=== PATIENT | female | born 1990 | race African-American/Black ===

== ENCOUNTER → 2021-01-27 | Outpatient (CLI) | payer MEDICARE, MEDICAID ==
--- NOTE | 2021-01-29 12:03 | SLEEP ---
DATE OF STUDY: 01/28/2021 HOME SLEEP STUDY ATTENDING PHYSICIAN: Blanche Rojo MD The patient is a 30-year-old who weighs 523 pounds with a BMI of 80. The patient underwent home sleep study performed at [facility]. Total recording time was 430 minutes. During the night study, the patient had 20 obstructive apneas, no central apneas. The patient is 68 mixed apneas and one hypopnea. The patient's AHI was 17.8 per hour. Nocturnal oximetry data was not available as the patient did not wear the saturation probe. The respiratory events were scored based on the flow signal. IMPRESSION: Moderate obstructive sleep apnea at an AHI of 17.8 per hour based on flow signal only. Oximetry data was not available. RECOMMENDATIONS: 1. The patient will benefit from treatment of sleep apnea with CPAP. 2. Once the patient is optimally treated with CPAP, then follow up in 4-6 weeks to assess compliance and to document clinical improvement. 3. Weight loss is strongly advised. The patient's BMI is 80. 4. Avoid [employer]END[employer] depressants. 5. Cautioned regarding driving until symptoms of sleep apnea resolve with above recommendations. LEE DR: Miguel TID: [id number]
== END ==
LOC: RT 08:36
DX: G47.33 Obstructive sleep apnea (adult) (pediatric) (principal)
CPT/HCPCS: G0399

== ENCOUNTER → 2021-03-31 | Outpatient (CLI) | payer MEDICARE, MEDICAID ==
--- NOTE | 2021-04-01 09:51 | SLEEP ---
DATE OF STUDY: 03/31/2021 SLEEP STUDY ATTENDING PHYSICIAN: Jonny Peace MD The patient is a 30-year-old who weighs 513 pounds with a BMI of 78. The patient had previous home sleep study and was found to have moderate BROCK at an AHI of 17.8 per hour. The patient returned for CPAP titration study. The patient's [place] score was 19. During the night study, the patient spent 487 minutes in bed and slept for 463 minutes with a sleep efficiency of 95%. Sleep latency was 3 minutes with REM latency of 67 minutes. Sleep architecture showed normal stage 1 and stage 2 sleep, increased REM sleep and normal slow-wave sleep. EKG monitoring revealed average heart rate of 88 beats per minute. No arrhythmias observed. No PLMs were observed. The patient was started on CPAP at 7 cm water and titrated up to 17 cm water. At the final pressure, the patient slept for 266 minutes. The patient had lateral REM sleep. There was some supine REM sleep as well. The patient's AHI was reduced to 0 per hour and oxygen saturation remained above 93%. The patient used full face mask. IMPRESSION: 1. Sleep apnea diagnosed by previous home sleep study. 2. No evidence of periodic limb movements. RECOMMENDATIONS: 1. CPAP at 17 cm water completely eliminated the patient's sleep apnea and should be used on a nightly basis. 2. Follow up in 4-6 weeks to assess compliance with CPAP and to document clinical improvement. 3. Weight loss is strongly advised. 4. Avoid [employer] depressants. 5. Cautioned regarding driving until symptoms of sleep apnea resolve with the use of CPAP. CLAUDY DR: Migeul TID: [id number] CC: JONNY PEACE MD
== END ==
LOC: RT 19:33
DX: G47.33 Obstructive sleep apnea (adult) (pediatric) (principal)
CPT/HCPCS: 95811

== ENCOUNTER 2021-11-07 12:21 | Emergency (ER) | payer MEDICAID, MEDICARE ==
[~2021-11-07] VITALS: Ht 172.7 cm; Wt 182.7 kg
[2021-11-07 13:23] LABS: BASO # 0.1 x10^3/uL (0.0-0.2); BASO % 1 % (0-3); EOS # 0.2 x10^3/uL (0.0-0.7); EOS % 3 % (0-3); HEMATOCRIT 40.3 % (36.0-47.0); HEMOGLOBIN 13.1 g/dL (12.0-15.5); LYMPH # 2.5 x10^3/uL (1.0-4.8); LYMPH % 30 % (24-48); MEAN CORPUSCULAR HEMOGLOBIN 25 pg (25-35); MEAN CORPUSCULAR HGB CONC 33 g/dL (31-37); MEAN CORPUSCULAR VOLUME 77 fL (79-100); MONO # 0.6 x10^3/uL (0.0-1.1); MONO % 7 % (0-9); NEUT # 5.1 x10^3/uL (1.8-7.7); NEUT % 59 % (31-73); PLATELET COUNT 306 x10^3/uL (140-400); RED BLOOD COUNT 5.27 x10^6/uL (3.50-5.40); RED CELL DISTRIBUTION WIDTH 16.5 % (11.5-14.5); WHITE BLOOD COUNT 8.5 x10^3/uL (4.0-11.0)
[2021-11-07] MEDS ORDERED: PANTOPRAZOLE IV PUSH 40 MG VIAL. IVP ONE (13:30)
[2021-11-07] MEDS ORDERED: LIDO:MAALOX 1:1 20 ML SINGLE DOSE. SWSW ONE (13:30)
[2021-11-07 13:40] LABS: CALCIUM 8.6 mg/dL (8.5-10.1); CREATININE 0.7 mg/dL (0.6-1.0); POTASSIUM 3.7 mmol/L (3.5-5.1)
[2021-11-07 13:45] LABS: ALBUMIN/GLOBULIN RATIO 0.6 (1.0-1.7); TOTAL BILIRUBIN 0.3 mg/dL (0.2-1.0); TOTAL PROTEIN 7.9 g/dL (6.4-8.2)
[2021-11-07 13:50] LABS: BACTERIA,URINE FEW /HPF (0-FEW); RBC,URINE 0 /HPF (0-2); WBC,URINE OCC /HPF (0-4)
--- NOTE | 2021-11-07 14:02 | RAD ---
EXAM: XR ABDOMEN 1V 11/07/2021 1:08 PM CLINICAL INDICATION: Abdominal pain COMPARISON: None TECHNIQUE: AP supine view the abdomen FINDINGS: Bowel gas pattern is nonspecific and nonobstructive. There is stool in the right hemicolon . No abnormal calcifications. No acute osseous abnormality. IMPRESSION: No acute abnormality in the abdomen. Electronically signed by: Audra Mason MD (11/07/2021 2:00 PM) [id number]
--- NOTE | 2021-11-07 14:38 | RAD ---
Ultrasound of the right upper quadrant of the abdomen 11/07/2021 CLINICAL HISTORY: Right upper quadrant abdominal pain. TECHNIQUE: A real-time ultrasound examination of the right upper quadrant of the abdomen was serafine d. Multiple images were obtained. FINDINGS: The study is limited to some degree due to the patient's large body habitus. The gallbladde r is well-distended. A 2.8 cm gallstone is seen within the gallbladder. The gallbladder wall thicknes s is within normal limits. No pericholecystic fluid is seen. The common bile duct is not definitely v isualized. No obvious intrahepatic biliary ductal dilatation is seen. Increased echogenicity of the l iver parenchyma is seen consistent with fatty infiltration. The liver is mildly enlarged measuring 20 cm in length. The pancreas is not well-visualized due to the patient's body habitus and overlying juliana wel gas. The right kidney is within normal limits. No free fluid is seen. IMPRESSION: 1. Cholelithiasis. 2. Mild hepatomegaly. Fatty infiltration of the liver. Electronically signed by: Rebel Patel MD (11/07/2021 2:35 PM) [id number]
[2021-11-07] MEDS ORDERED: PANT40TA77 PO (14:48)
[2021-11-07 14:50] VITALS: BP 151/91
--- NOTE | 2021-11-07 14:57 | PHYS DOC ---
Past Medical History Past Surgical History: No Surgical History Smoking Status: Never Smoker Alcohol Use: None General Adult EDM: Chief Complaint: ABDOMINAL PAIN HPI: HPI: Patient is a 30 year old F with PMH of postpartumx3, obesity who presents with epigastric and right upper quadrant pain for several years which has increased over the last couple of weeks. Patient states that she does not know what is going on. She states that it usually hurts more when she eats. She has not tried any medication. She has not visited her doctor to talk about this. Review of Systems: Review of Systems: Constitutional: Denies fever or chills. [] Eyes: Denies change in visual acuity. [] HENT: Denies nasal congestion or sore throat. [] Respiratory: Denies cough or shortness of breath. [] Cardiovascular: Denies chest pain or edema. [] GI: Positive abdominal pain, no nausea, vomiting, bloody stools or diarrhea. [] : Denies dysuria. [] Musculoskeletal: Denies back pain or joint pain. [] Integument: Denies rash. [] Neurologic: Denies headache, focal weakness or sensory changes. [] Endocrine: Denies polyuria or polydipsia. [] Lymphatic: Denies swollen glands. [] Psychiatric: Denies depression or anxiety. [] Heart Score: C/O Chest Pain: No Risk Factors: Risk Factors: DM, Current or recent (<one month) smoker, HTN, HLP, family history of CAD, obesity. Risk Scores: Score 0 - 3: 2.5% MACE over next 6 weeks - Discharge Home Score 4 - 6: 20.3% MACE over next 6 weeks - Admit for Clinical Observation Score 7 - 10: 72.7% MACE over next 6 weeks - Early Invasive Strategies Current Medications: Current Medications Medications (Trade) Dose Ordered Sig/Claudette Start Time Stop Time Status Last Admin Dose Admin Multi-Ingredient Mouthwash/Gargle (Gi Cocktail) 20 ml 1X ONCE 11/07/21 13:30 11/07/21 13:31 DC 11/07/21 13:38 20 ML Pantoprazole Sodium (PROTONIX VIAL for IV PUSH) 40 mg 1X ONCE 11/07/21 13:30 11/07/21 13:31 DC 11/07/21 13:39 40 MG Allergies: Allergies: Allergies Coded Allergies Type Severity Reaction Last Updated Verified No Known Drug Allergies 11/07/21 No Physical Exam: PE: Constitutional: Well developed, well nourished, no acute distress, non-toxic appearance. Morbidly obese [] HENT: Normocephalic, atraumatic, bilateral external ears normal, oropharynx moist, no oral exudates, nose normal. [] Eyes: PERRLA, EOMI, conjunctiva normal, no discharge. [] Neck: Normal range of motion, no tenderness, supple, no stridor. [] Cardiovascular:Heart rate regular rhythm, no murmur [] Lungs & Thorax: Bilateral breath sounds clear to auscultation [] Abdomen: Bowel sounds normal, soft, minimal positive tenderness in epigastric and right upper quadrant area, no masses, no pulsatile masses. [] Skin: Warm, dry, no erythema, no rash. [] Back: No tenderness, no CVA tenderness. [] Extremities: No tenderness, no cyanosis, no clubbing, ROM intact, no edema. [] Neurologic: Alert and oriented X 3, normal motor function, normal sensory function, no focal deficits noted. [] Psychologic: Affect normal, judgement normal, mood normal. [] Current Patient Data: Labs: Laboratory Tests Test 11/07/21 12:42 11/07/21 13:09 11/07/21 13:21 Urine Collection Type Unknown Urine Color (Auto) Yellow Urine Turbidity Clear Urine pH (Auto) 6.5 (<5.0-8.0) Urine Specific [place] 1.026 (1.000-1.030) Urine Protein (Auto) Negative mg/dL (Negative) Urine Glucose (Auto)(UA) Negative mg/dL (Negative) Urine Ketones (Auto) Negative mg/dL (Negative) Urine Blood (Auto) Negative (Negative) Urine Nitrite Negative (Negative) Urine Bilirubin (Auto) Negative (Negative) Urine Urobilinogen (Auto) Normal mg/dL (Normal) Urine Leukocyte Esterase (Auto) Negative (Negative) Urine RBC 0 /HPF (0-2) Urine WBC Occ /HPF (0-4) Urine Squamous Epithelial Cells Mod /LPF Urine Bacteria Few /HPF (0-FEW) Urine Mucus Mod /LPF White Blood Count 8.5 x10^3/uL (4.0-11.0) Red Blood Count 5.27 x10^6/uL (3.50-5.40) Hemoglobin 13.1 g/dL (12.0-15.5) Hematocrit 40.3 % (36.0-47.0) Mean Corpuscular Volume 77 fL (79-100) L Mean Corpuscular Hemoglobin 25 pg (25-35) Mean Corpuscular Hemoglobin Concent 33 g/dL (31-37) Red Cell Distribution Width 16.5 % (11.5-14.5) H Platelet Count 306 x10^3/uL (140-400) Neutrophils (%) (Auto) 59 % (31-73) Lymphocytes (%) (Auto) 30 % (24-48) Monocytes (%) (Auto) 7 % (0-9) Eosinophils (%) (Auto) 3 % (0-3) Basophils (%) (Auto) 1 % (0-3) Neutrophils # (Auto) 5.1 x10^3/uL (1.8-7.7) Lymphocytes # (Auto) 2.5 x10^3/uL (1.0-4.8) Monocytes # (Auto) 0.6 x10^3/uL (0.0-1.1) Eosinophils # (Auto) 0.2 x10^3/uL (0.0-0.7) Basophils # (Auto) 0.1 x10^3/uL (0.0-0.2) Sodium Level 137 mmol/L (136-145) Potassium Level 3.7 mmol/L (3.5-5.1) Chloride Level 102 mmol/L (98-107) Carbon Dioxide Level 27 mmol/L (21-32) Anion Gap 8 (6-14) Blood Urea Nitrogen 9 mg/dL (7-20) Creatinine 0.7 mg/dL (0.6-1.0) Estimated GFR (Cockcroft-Gault) 97.0 BUN/Creatinine Ratio 13 (6-20) Glucose Level 98 mg/dL (70-99) Calcium Level 8.6 mg/dL (8.5-10.1) Total Bilirubin 0.3 mg/dL (0.2-1.0) Aspartate Amino Transferase (AST) 14 U/L (15-37) L Alanine Aminotransferase (ALT) 17 U/L (14-59) Alkaline Phosphatase 111 U/L (46-116) Total Protein 7.9 g/dL (6.4-8.2) Albumin 3.0 g/dL (3.4-5.0) L Albumin/Globulin Ratio 0.6 (1.0-1.7) L Lipase 42 U/L (73-393) L POC Urine HCG, Qualitative Hcg negative (Negative) Laboratory Tests 11/07/21 13:09 Laboratory Tests 11/07/21 13:09 Vital Signs: Vital Signs Date Time Temp Pulse Resp B/P (MAP) Pulse Ox O2 Delivery O2 Flow Rate FiO2 11/07/21 12:22 98.3 96 18 159/106 (123) 95 Room Air 98.3 EKG: EKG: [] Radiology/Procedures: Radiology/Procedures: PATIENT: GEORGINA CORADO ACCOUNT: [id number] : 1990 LOCATION: ER AGE: 30 SEX: F EXAM STATUS: REG ER ORD. PHYSICIAN: GRAYSON TORREZ MD REASON: RUQ, gallstones? TECH KNOWS PROCEDURE: ABDOMEN LTD Ultrasound of the right upper quadrant of the abdomen 11/07/2021 CLINICAL HISTORY: Right upper quadrant abdominal pain. TECHNIQUE: A real-time ultrasound examination of the right upper quadrant of the abdomen was performed. Multiple images were obtained. FINDINGS: The study is limited to some degree due to the patient's large body habitus. The gallbladder is well-distended. A 2.8 cm gallstone is seen within the gallbladder. The gallbladder wall thickness is within normal limits. No pericholecystic fluid is seen. The common bile duct is not definitely visualized. No obvious intrahepatic biliary ductal dilatation is seen. Increased echogenicity of the liver parenchyma is seen consistent with fatty infiltration. The liver is mildly enlarged measuring 20 cm in length. The pancreas is not well-visualized due to the patient's body habitus and overlying bowel gas. The right kidney is within normal limits. No free fluid is seen. IMPRESSION: 1. Cholelithiasis. 2. Mild hepatomegaly. Fatty infiltration of the liver. Electronically signed by: Rebel Patel MD (11/07/2021 2:35 PM) [id number] Impression: Acute cholelithiasis, gastritis Course & Med Decision Making: Course & Med Decision Making Pertinent Labs and Imaging studies reviewed. (See chart for details) Patient seen and evaluated by myself, 30-year-old female with cholelithiasis on ultrasound. Labs and urine are within normal limits. Patient reports improvement of pain with Protonix. I have instructed her to follow-up with her primary care physician in order to get a referral to see a surgeon. She will need surgery for removal of gallbladder. I have given her Protonix prescription. Patient counseled thoroughly. Patient instructed to avoid fatty foods. Patient stated that she will follow-up and try to avoid fatty foods. All questions answered. Patient hemodynamically stable at time of discharge. Dragon Disclaimer: DragStepOut Disclaimer: This electronic medical record was generated, in whole or in part, using a voice recognition dictation system. Departure Departure Impression: Primary Impression: Cholelithiasis Additional Impression: Gastritis Disposition: 01 HOME / SELF CARE / HOMELESS Condition: GOOD Patient Instructions: Cholelithiasis, [id number] Additional Instructions: Follow-up with your primary care physician You should speak to them about gallstones as well as gastritis. I have given you some medication for gastritis that will help decrease acid in your stomach. You may want to have feces testing for H. pylori. You should have a referral to a surgeon to evaluate you to remove the gallbladder. Scripts Pantoprazole Sodium (PANTOPRAZOLE SODIUM ) 40 Mg Tablet. 40 MG PO DAILYAC for GERD for 28 Days, #28 TAB Prov: GRAYSON TORREZ MD 11/07/21 GRAYSON TORREZ MD Nov 07, 2021 14:57
== END 2021-11-07 15:05 | disposition home or self-care (01) ==
LOC: ER 12:21
DX: K80.20 Calculus of gallbladder without cholecystitis without obstruction (principal); K29.70 Gastritis, unspecified, without bleeding; R16.0 Hepatomegaly, not elsewhere classified; K76.0 Fatty (change of) liver, not elsewhere classified
CPT/HCPCS: 36415; 74018; 76705; 80053; 81001; 81025; 83690; 85025; 96374; 99285; C9113